=== PATIENT | male | born 1970 | race Caucasian/White ===

== ENCOUNTER 2017-04-10 14:27 | Observation (INO) | payer OTHER ==
--- NOTE | ~2017-04-10 | HP ---
History And Physical [facility] [address] [place]. [address] NAME: CARLOS BALBUENA : 72 STATUS : ADM IN [facility]#: [id number] AGE: 46 ADM/REG DATE : 04/10/17 MR#: [id number] REPORT SERV DATE: 04/11/17 DICTATED BY: MORENO COOL DATE: 04/11/17 REPORT STATUS : Draft TRANSCRIBED BY: MODL DATE: 04/11/17 DATE OF ADMISSION: 04/10/2017 CHIEF COMPLAINT: Intractable left hip leg pain. HISTORY OF PRESENT ILLNESS: This is a 46-year-old male, who had treatment for a right-sided L4-L5 disk herniation in 2006 by myself. He ultimately had a microdiskectomy and had an excellent outcome. He did have some residual numbness along the great toe, but no weakness, and he has been able to return to normal activities including recreational activities as well as working as a maintenance provider at [employer]. He has been doing exceptionally well, except four years ago, he had a flare up of some low back pain, was treated conservatively with no problems. Then two weeks ago, he was without any trauma or injury. He had onset of some left buttock and proximal thigh pain that has just gradually progressively worse to the point he got so severe since night. He has been to the ER. He has been to my office twice and had narcotics, gabapentin, steroids, and nothing has helped. They have tried twice to put him in the MRI scan, but he cannot lay flat because the pain is just so intractable, even yesterday with IV sedation. At [facility], he could not lie down for MRI. He did contact our office yesterday afternoon in such intractable pain, said he is going to call the ambulance. He was brought to the emergency room here at [facility], and admitted with intractable left leg pain. He has had no new injuries. He has had no fever, chills, night sweats, etc. PAST MEDICAL HISTORY: None. PAST SURGICAL HISTORY: Right L4-L5 microdiskectomy. CURRENT MEDICATIONS: Include prednisone, Dilaudid, gabapentin, Robaxin, none of which have been very helpful. He also has had Nucynta which did help slightly. ALLERGIES: NONE. SOCIAL HISTORY: He is , very healthy, does not smoke or use tobacco or alcohol. FAMILY HISTORY: Noncontributory. REVIEW OF SYSTEMS: Otherwise, negative. PHYSICAL EXAMINATION: VITAL SIGNS: He is 5 feet and 11 inches, 179 pounds. GENERAL: Alert, cooperative, well oriented. He does appear in acute painful distress. HEENT: Grossly normal. LUNGS: Clear to auscultation. HEART: Rate is regular and rhythmic. ABDOMEN: Benign. MUSCULOSKELETAL: The spine has a previous old incision which is well healed. He has no History And Physical [address] [address] NAME: CARLOS BALBUENA : 72 STATUS : ADM IN PAT#: [id number] AGE: 46 ADM/REG DATE : 04/10/17 MR#: [id number] REPORT SERV DATE: 04/11/17 DICTATED BY: MORENO COOL DATE: 04/11/17 REPORT STATUS : Draft TRANSCRIBED BY: ROSIE DATE: 04/11/17 deformities. He has severe spasm. He has a markedly positive straight leg raising even at 20 or 30 degrees on the left. He has a positive contralateral straight leg raising on the right at 50-60 degrees. He does not have any sensory deficit. His reflexes are symmetrical, but he has almost a complete drop foot with tibialis anterior, posterior tibialis, EHL, all at 3 minus over 5 that he can barely move his ankle at all. He has no abnormal pain behaviors. No evidence of myelopathy is noted. Orthopedically, he has no pain with moving hips, knees, or ankles. He has normal pulses in all four extremities. No abnormal skin lesions found. ASSESSMENT/RECOMMENDATIONS: This appears to be a problem most likely a recurrent herniated nucleus pulposus at L4-L5. It is on the left side, still the right side, but nevertheless still recurrent herniated nucleus pulposus at the level of prior abnormality. He has an obvious drop foot and intractable radiculopathy. Based on the above, I have had a discussion with both he and his that we should try to obtain an MRI for tomorrow morning with anesthesia assistance. If we find what we expect which is a large recurrent herniated nucleus pulposus compressing the nerve severely, we would take him from the MRI straight to preop and then proceed with a microdiskectomy on the left side. I have made a wide aware that she would have to be the one to sign the operative permit since he will have medications, they would alter his ability to legal signs any forms. They are well aware of this and both agreed to proceed as outlined above. He will continue IV pain medicine today. I have given him some IV steroid, and we will proceed per the MRI tomorrow morning. KARLY/MODL Moreno Cool D.O. / [id number] CC: Asha Romo D.O.
--- NOTE | ~2017-04-10 | OP ---
Record Of Operation [facility] [address] [place]. [address] NAME: CARLOS BALBUENA : 72 STATUS : DIS IN PAT#: [id number] AGE: 46 ADM/REG DATE : 04/10/17 MR#: [id number] REPORT SERV DATE: 04/12/17 DICTATED BY: MORENO COOL DATE: 04/12/17 REPORT STATUS : Draft TRANSCRIBED BY: MODL DATE: 04/12/17 DATE OF PROCEDURE: PREOPERATIVE DIAGNOSIS: Large recurrent herniated nucleus pulposus, left L4-5. POSTOPERATIVE DIAGNOSIS: Large recurrent herniated nucleus pulposus, left L4-5. PROCEDURE: 1. Microscopic navigation-assisted surgery. 2. Left L4-5 hemilaminotomy and microdiskectomy. RADIO OPERATOR GROUND: Juan Daniel Chung. ANESTHESIA: General. BLOOD LOSS: 10 mL. INDICATIONS FOR SURGERY: A 46-year-old male with intractable pain of variable degree, which required admission to the hospital on Wednesday evening. Pain was 10/10. The patient could not sit, stand, walk, or do anything. Two attempts had been made to get him in an MRI scan, but he could not lay because of the intractable pain. This morning, he was placed to sleep with anesthesia. MRI was obtained showing a large recurrent HNP on the left at L4-5. There was a smaller protrusion on the left at L5-S1, which does not cause significant impingement. The patient is brought to surgery for the above procedure due to the intractable pain and drop foot with is almost complete. Prior to surgery, we went over the risks, benefits, alternatives, and expectations. Also because of the complexity of surgery and the need to identify correct level of surgery intraoperatively as well as desire to carry out the safest and most precise dissection, we feel intraoperative navigation is mandatory. DESCRIPTION OF PROCEDURE: The patient was identified in the preop holding and antibiotic prophylaxis given. Neurophysiology monitoring leads were inserted. The patient was brought to the operative suite and general anesthetic including endotracheal intubation was administered. He was placed prone on a Devyn spine frame. Bony prominences were carefully padded. Thoracolumbar spine was scrubbed with Hibiclens solution. DuraPrep was painted. Sterile drapes were applied. A small stab wound was carried out over the right posterior-superior iliac spine. A percutaneous pin with navigational frame attached was inserted in PSIS. Intraoperative CT scan with O-arm was obtained. CT information was used to register the navigational system. With navigational assistance, I identified the amount of lamina of L4. I needed to remove in order to reach the cephalad boundary of the disk space. I also determined the amount of medial facet joint to remove in order to reach the lateral aspect of the thecal sac. I used a 3 mm cynthia bur and removed 50% of lamina of the L4 and 25% of medial facet joint of L4- 5. The lateral ligamentum flavum was elevated and removed. I mobilized the thecal sac and localized a very large extruded herniation just below the disk space against at the edge of Record Of Operation [address] [address] NAME: CARLOS BALBUENA : 72 STATUS : DIS IN PAT#: [id number] AGE: 46 ADM/REG DATE : 04/10/17 MR#: [id number] REPORT SERV DATE: 04/12/17 DICTATED BY: MORENO COOL DATE: 04/12/17 REPORT STATUS : Draft TRANSCRIBED BY: MODL DATE: 04/12/17 the body just below the edge of the body of L5. The area was markedly impinged. The disk was removed. There was one large piece. The wound was irrigated. The retractor was removed. No bleeding was noted. The fascial opening was closed with a single interrupted #1 Vicryl suture. The subcutaneous tissue was closed with 2-0 Vicryl sutures and 2-0 vertical mattress nylon suture was used for skin closure. Sterile dressings applied. The patient returned to the supine position, awakened, extubated, and taken to recovery room in satisfactory condition having tolerated the procedure well. Sponge, needle, and instrument counts were correct. No intraoperative complications noted. /MODL Moreno Cool D.O. / [id number] CC: Asha Romo D.O.
[2017-04-10] MEDS ORDERED: NEUR300 PO (16:29)
[2017-04-10] MEDS ORDERED: IBU800 PO (16:30)
[2017-04-10] MEDS ORDERED: V5 PO (16:30)
[2017-04-10] MEDS ORDERED: METHOC500B PO (16:30)
[2017-04-10] MEDS ORDERED: MEDROLPAK4 PO (16:31)
[2017-04-10] MEDS ORDERED: PCET PO (16:31)
[2017-04-10] MEDS ORDERED: CLARIT10 PO (16:31)
[2017-04-10] MEDS ORDERED: DIL4TAB PO (16:31)
[2017-04-11 12:12] LABS: INTERNATIONAL NORMAL RATI 1.1 UNITS (-); PROTIME (NOT ORD) 13.6 SEC (12.0-14.5)
== END 2017-04-12 16:53 | disposition home or self-care (01) ==
LOC: 3SO 14:27
PROVIDERS: Orthopaedic Surgery Orthopaedic Surgery of the Spine
PROC: 0SB20ZZ Excision of Lumbar Vertebral Disc, Open Approach (ICD-10-PCS; principal; 2017-04-12)
PROC: 01NB0ZZ Release Lumbar Nerve, Open Approach (ICD-10-PCS; 2017-04-12)
DX: M51.16 Intervertebral disc disorders with radiculopathy, lumbar region (principal); Z79.52 Long term (current) use of systemic steroids; Z79.899 Other long term (current) drug therapy; Z98.890 Other specified postprocedural states
CPT/HCPCS: 72100; 72148; 85610; 88304; 88311; 96374; 96375; 96376; A9270-GY; G0378; J0690; J1885; J2250; J2274; J2405; J2710; J2930; J3010